=== PATIENT | male | born 1935 | race Caucasian/White ===

== ENCOUNTER 2020-07-04 10:46 | Observation (INO) ==
[2020-07-04 12:24] LABS: Basophils % 0.6 % (0.0-0.8); Eosinophils % 0.7 % (0.00-10.9); Hemoglobin 13.8 GM/DL (14.0-18.0); Immature Granulocytes % 0.4 %; Immature Granulocytes Absolute 0.02 #; Lymphocytes % 17.8 % (21.2-54.2); Mean Corpuscular HGB Conc 32.9 GM/DL (32-36); Mean Corpuscular Volume 91.7 FL (87-102); Mean Platelet Volume 9.7 FL (9.6-12.0); Neutrophils % 69.5 % (38.7-73.9); Platelet Count 190 T/CUMM (130-400); Red Blood Count 4.58 MC/CUMM (3.8-5.5); Red Cell Distribution Width 13.6 % (9.3-17.3); White Blood Count 5.3 T/CUMM (4-12)
[2020-07-04] MEDS ORDERED: ONDANSETRON 4 MG/2 ML VIAL ONE (12:25)
[2020-07-04 12:32] LABS: Bilirubin,Urine Negative (Negative); Blood, Urine Negative (Negative); Glucose,Urine (UA) Negative (Negative); Ketones,Urine 20 mg/dL (Negative); Mucus,Urine Occasional /LPF (Occasional); Nitrite,Urine Negative (Negative); Protein,Urine Negative; RBC,Urine 4 /HPF (0-4); Squamous Epithelial Cell,Urine Occasional /HPF (0-10); Urine Appearance CLEAR (Clear); Urine Color Yellow (Yellow); Urine Specific Gravity 1.013 (1.001-1.035)
[2020-07-04 12:43] LABS: Albumin 3.6 G/DL (3.4-5.0); Bilirubin,Total 0.6 MG/DL (0.2-1.0); Calcium 8.6 MG/DL (8.5-10.1); Osmolality,Calculated 275.7 MOS/KG (273-304); Potassium 4.1 MMOL/L (3.5-5.1); Total Protein 6.9 G/DL (6.4-8.2)
[2020-07-04] MEDS ORDERED: ACETAMINOPHEN 325 MG TABLET PO PRN (13:41)
[2020-07-04] MEDS ORDERED: ONDANSETRON 4 MG/2 ML VIAL IV PRN (13:41)
[2020-07-04] MEDS ORDERED: HYDROmorphone 2 MG/1 ML VIAL IV PRN (13:41)
[2020-07-04] MEDS ORDERED: LIDOCAINE 2% 5 ML VIAL ONE ×2 (13:58)
[2020-07-04] MEDS ORDERED: ROCURONIUM 50 MG/5 ML VIAL IV ONE (13:58)
[2020-07-04] MEDS ORDERED: ETOMIDATE 40 MG/20 ML VIAL IV ONE (13:58)
[2020-07-04] MEDS ORDERED: PHENYLEPHRINE DRIP 20 MG/250 ML PREMIX IV ONE (14:15)
[2020-07-04] MEDS ORDERED: fentaNYL 100 MCG/2 ML VIAL ONE (14:16)
[2020-07-04] MEDS ORDERED: NEOSTIGMINE 10 MG/10 ML VIAL ONE (14:19)
[2020-07-04] MEDS ORDERED: GLYCOPYRROLATE 0.4 MG/2 ML VIAL ONE ×2 (14:46→15:31)
[2020-07-04] MEDS ORDERED: TISSUE ADHESIVE 1 EACH APPLICATOR TOP ONE (15:16)
[2020-07-04] MEDS ORDERED: SEVOFLURANE 1 UNIT/15 MINUTE INH ONE (16:05)
[2020-07-04] MEDS: LACTATED RINGERS 1,000 ML IV SCH (17:26)
[2020-07-04] MEDS: DOCUSATE SODIUM 100 MG CAPSULE PO SCH (20:28)
[2020-07-05] MEDS: LACTATED RINGERS 1,000 ML IV SCH ×2 (00:45→07:49)
[2020-07-05 08:32] VITALS: BP 109/42
[2020-07-05] MEDS: DOCUSATE SODIUM 100 MG CAPSULE PO SCH (08:52)
[2020-07-05] MEDS ORDERED: PANTOPRAZOLE 40 MG TABLET PO SCH (09:00)
== END 2020-07-05 12:15 | disposition home or self-care (01) ==
LOC: N.ED 10:46 → N.EDINP 13:41 → INTOOBSV 13:41 → N.3E 14:24
PROVIDERS: ADMIT Student in an Organized Health Care Education/Training Program; ATTEND Student in an Organized Health Care Education/Training Program